=== PATIENT | male | born 1945 | race Caucasian/White ===

== ENCOUNTER 2019-06-14 15:50 | Inpatient (IN) | payer OTHER ==
[~2019-06-14] VITALS: Ht 170.2 cm; Wt 81.6 kg
[2019-06-14] MEDS ORDERED: METFORMIN HCL1000 M2 PO (16:21)
[2019-06-14] MEDS ORDERED: INTEGRA PLUS C1 EACH (16:22)
[2019-06-14] MEDS ORDERED: IRON236 MG PO (16:22)
--- NOTE | 2019-06-14 16:41 | NUR ---
PT REFIERE TIENE MAREOS Y NAUSEAS DESDE HOY. SE LE REALIZA EKG Y SE PRESENTA A DR LEONARD EVALUA EL MISMO.
--- NOTE | 2019-06-14 16:50 | NUR ---
SE ORIENTA AL PACIENTE SOBRE MEDICAMENTO, MUESTRAS A SER COLECTADAS Y RADIOLOGIA A SER REALIZADA. PACIENTE REFIERE ENTENDER. MISS. SAM MALIK, PROCEEDE A COLECTAR LAS MUESTRAS UTILIZANDO MEDIDAS ASEPTICAS Y LAS ENVIA AL LAOBRATORIO.
--- NOTE | 2019-06-14 17:39 | NUR ---
SE NOTIFICA AL DR. LOPEZ SOBRE VALOR PANICO DE HEMOGLOBINA 7.[address] LOPEZ.
--- NOTE | 2019-06-14 20:13 | NUR ---
PERSONAL DE [place] DE FLAVIA DE [place]UO RECOGE TUBOS PILOTOS PARA 2 UNIDADES DE PRBC PENDIENTES A TRANSFUNDIR.
== END 2019-06-20 14:28 | disposition home or self-care (01) | DRG 379 ==
LOC: ER 15:50 → EDBD 16:15 → ER 16:15 → MEDJ 22:50
PROVIDERS: ADMIT Internal Medicine
PROC: BW28ZZZ Computerized Tomography (CT Scan) of Head (ICD-10-PCS; principal; 2019-06-14)
PROC: 4A033R1 Measurement of Arterial Saturation, Peripheral, Percutaneous Approach (ICD-10-PCS; 2019-06-14)
PROC: 30233N1 Transfusion of Nonautologous Red Blood Cells into Peripheral Vein, Percutaneous Approach (ICD-10-PCS; 2019-06-14)
DX: K25.0 Acute gastric ulcer with hemorrhage (principal); D50.0 Iron deficiency anemia secondary to blood loss (chronic); E11.9 Type 2 diabetes mellitus without complications; E86.0 Dehydration; E87.8 Other disorders of electrolyte and fluid balance, not elsewhere classified; K92.1 Melena; R42 Dizziness and giddiness; R90.89 Other abnormal findings on diagnostic imaging of central nervous system; Z79.4 Long term (current) use of insulin

== ENCOUNTER 2019-09-16 08:50 | Outpatient (CLI) | payer OTHER ==
[~2019-09-16 08:50] MED LIST: INTEGRA PLUS C1 EACH; IRON236 MG PO; METFORMIN HCL1000 M2 PO
== END 2019-09-16 09:05 | disposition home or self-care (01) ==
LOC: LAB 08:50
DX: C78.7 Secondary malignant neoplasm of liver and intrahepatic bile duct (principal)